=== PATIENT | female | born 1995 | race Caucasian/White ===

== ENCOUNTER 2020-11-24 16:38 | Emergency (ER) | payer OTHER, BC ==
[~2020-11-24] VITALS: Ht 170.2 cm; Wt 83.9 kg
[2020-11-24 16:48] VITALS: BP_SYST 119
[2020-11-24] MEDS ORDERED: IBUPROFEN 800 MG TABLET PO ONE (17:30)
[2020-11-24] MEDS ORDERED: IBUP-1969 PO (18:54)
[2020-11-24] MEDS ORDERED: CYCL-10 PO (18:54)
[2020-11-24 19:01] VITALS: BP_SYST 124
== END 2020-11-24 19:01 | disposition home or self-care (01) ==
LOC: SED 16:38
DX: S16.1XXA Strain of muscle, fascia and tendon at neck level, initial encounter (principal); V49.9XXA Car occupant (driver) (passenger) injured in unspecified traffic accident, initial encounter; Y93.89 Activity, other specified; Y92.413 State road as the place of occurrence of the external cause; Y99.8 Other external cause status
CPT/HCPCS: 71045; 72125-TC; 76376; 81025; 99284

== ENCOUNTER 2024-04-20 19:17 | Emergency (ER) | payer BC, MEDICAID ==
[~2024-04-20] VITALS: Ht 170.2 cm; Wt 77.6 kg
[~2024-04-20 19:17] MED LIST: CYCL10TA24 PO; IBUP-1969 PO
[2024-04-20 19:27] VITALS: BP_SYST 106; PULSE 83; RESP 18; TEMP 97.6; O2SAT 98
[2024-04-20 22:31] LABS: BILIRUBIN,URINE NEGATIVE (NEGATIVE); BLOOD, URINE 2+ (NEGATIVE); CLARITY/URINE CLEAR (CLEAR); COLOR,URINE YELLOW (YELLOW); GLUCOSE,URINE NEGATIVE (NEGATIVE); KETONES,URINE 1+ (NEGATIVE); LEUKOCYTE ESTERASE ,URINE NEGATIVE (NEGATIVE); NITRITE, URINE NEGATIVE (NEGATIVE); PROTEIN URINE NEGATIVE (NEGATIVE); UROBILINOGEN,URINE 0.2 (0.2-1.0)
[2024-04-20 22:43] LABS: BARBITURATE, URINE NEGATIVE (NEG <=200); BENZODIAZEPINE, URINE NEGATIVE (NEG <=150); CANNABINOID, URINE NEGATIVE (NEG <=50); COCAINE, URINE NEGATIVE (NEG <=150); METHAMPHETAMINES SCREEN,URINE NEGATIVE (NEG <=500); OPIATE, URINE NEGATIVE (NEG <=100); PHENCYCLIDINE SCREEN,URINE NEGATIVE (NEG <=25); UR TRICYCLIC ANTIDEPRESSANTS NEGATIVE (NEG <=300); URINE AMPHETAMINE NEGATIVE (NEG <=500); URINE METHADONE NEGATIVE (NEG <=200); URINE OXYCODONE SCREEN NEGATIVE (NEG <=100)
[2024-04-20 23:34] LABS: BACTERIA,URINE RARE /HPF (None Seen); WBC,URINE 0-3 /HPF (0-3)
[2024-04-20 23:35] LABS: MUCUS,URINE 3+ /LPF (None Seen)
[2024-04-20 23:59] VITALS: BP_SYST 110; PULSE 73; RESP 20; TEMP 97.5; O2SAT 99
== END 2024-04-20 23:59 | disposition home or self-care (01) ==
LOC: SED 19:17
DX: M50.30 Other cervical disc degeneration, unspecified cervical region (principal); R20.2 Paresthesia of skin; Z90.49 Acquired absence of other specified parts of digestive tract; Z98.890 Other specified postprocedural states; Z79.899 Other long term (current) drug therapy; Z79.2 Long term (current) use of antibiotics
CPT/HCPCS: 80307; 81000; 81001; 81015; 99283